=== PATIENT | female | born 1995 | race Hispanic/Latino ===

== ENCOUNTER 2018-12-23 23:59 | Emergency (ER) | payer SELFPAY ==
[~2018-12-23] VITALS: Ht 157.5 cm; Wt 86.2 kg
--- OUTSIDE RECORDS SUMMARY | 2018-12-24 00:04 | XMS REPORT ---
Author Author Admin, Warren Organization [facility] Address Unknown Phone Unavailable Allergies, Adverse Reactions, Alerts Allergy Name Reaction Description Start Date Severity Status Provider No Known Allergies Flip Barrett DDS Conditions or Problems Problem Name Problem Code Onset Date Status Entry Date Provider Comment Standard Description Annotate No Known Problems Flip Barrett DDS Medication List Medication Instructions Start Date Stop Date Generic Name NDC Status Provider Patient Instruction AMOXICILLIN 500 MG ORAL CAPSULE 1 by mouth 3 times a day AMOXICILLIN 48924980983 Active Flip Barrett DDS Active TYLENOL WITH CODEINE #3 300-30 MG ORAL TABLET 1 by mouth every 4-6 hours as needed ACETAMINOPHEN-CODEINE 91288531426 Active Flip Barrett DDS Active Vital Signs Date Name Value Unit Range Description blood pressure, diastolic 82 mm[Hg] BP kohler blood pressure, systolic 114 mm[Hg] BP sys pulse rate E&M 59 /min Heart rate
--- OUTSIDE RECORDS SUMMARY | 2018-12-24 00:04 | XMS REPORT | Clinical Summary ---
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 Active Problems Problem Noted Date Suicide attempt 03/22/2018 Encounters Care Team Description Date Type Specialty Jesusita Gandara MD Dodson, MD Christine Carranza, MD Diana Ramos, Bernardo Carpio MD Suicide attempt (HCC) (Primary Dx); Unresponsive; Intentional diphenhydramine overdose, initial encounter (HCC); Acute respiratory failure, unspecified whether with hypoxia or hypercapnia ([facility]) 03/22/2018 Emergency General Internal Medicine - 03/23/2018 03/22/2018 Orders Only General Internal Medicine after 12/23/2017 Social History Date Tobacco Use Types Packs/Day Years Used Never Smoker Smokeless Tobacco: Never Used Alcohol Use Drinks/Week oz/Week Comments No Sex Assigned at Date Recorded Not on file Industry Job Start Date Occupation Not on file Not on file Not on file Travel End Travel History Travel Start No recent travel history available. Last Filed Vital Signs Time Taken Vital Sign Reading 03/23/2018 10:00 AM CDT Blood Pressure 120/68 03/23/2018 11:06 AM CDT Pulse 55 03/23/2018 10:00 AM CDT Temperature 37 C (98.6 F) 03/23/2018 11:06 AM CDT Respiratory Rate 16 03/23/2018 11:06 AM CDT Oxygen Saturation 99% 03/23/2018 11:06 AM CDT Inhaled Oxygen 21% Concentration 03/22/2018 5:41 AM CDT Weight 87.4 kg (192 lb 11.2 oz) 03/22/2018 1:50 AM CDT Height 170.2 cm (5' 7") 03/22/2018 5:41 AM CDT Body Mass Index 30.18 Plan of Treatment Not on file Procedures Comments Procedure Name Priority Date/Time Associated Diagnosis RHYTHM STRIP - SCAN 03/24/2018 3:11 PM CDT XR CHEST 1 VIEW Routine 03/23/2018 PORTABLE/BEDSIDE 3:50 AM CDT CBC (HEMOGRAM ONLY) Routine 03/23/2018 3:28 AM CDT BASIC METABOLIC PANEL (7) Routine 03/23/2018 3:28 AM CDT COMPREHENSIVE METABOLIC Routine 03/22/2018 PANEL 7:53 PM CDT COMPREHENSIVE METABOLIC Routine 03/22/2018 PANEL 5:46 PM CDT POCT-GLUCOSE METER Routine 03/22/2018 12:24 PM CDT COMPREHENSIVE METABOLIC Routine 03/22/2018 PANEL 11:52 AM CDT ECG 12-LEAD Routine 03/22/2018 9:12 AM CDT Procedure Note - Interface, External Ris In - 03/22/2018 9:15 AM CDT Ventricula r Rate 85 BPM Atrial Rate 85 BPM P-R Interval 152 ms QRS Duration 82 ms Q-T Interval 394 ms QTC Calculatio n(Bazett) 468 ms P Boyd 62 degrees R Boyd 57 degrees T Boyd 40 degrees Normal sinus rhythm Normal ECG When compared with ECG of 09:11, PREVIOUS ECG IS PRESENT ECG 12-LEAD Routine 03/22/2018 9:11 AM CDT Procedure Note - Interface, External Ris In - 03/22/2018 9:15 AM CDT Ventricula r Rate 81 BPM Atrial Rate 81 BPM P-R Interval 154 ms QRS Duration 82 ms Q-T Interval 390 ms QTC Calculatio n(Bazett) 453 ms P Boyd 155 degrees R Boyd 132 degrees T Boyd 80 degrees Suspect arm lead reversal, interpreta tion assumes no reversal Unusual P axis, possible ectopic atrial rhythm with undetermin ed rhythm irregulari ty Right axis deviation Abnormal ECG When compared with ECG of 8 09:11, PREVIOUS ECG IS PRESENT ECG 12-LEAD Routine 03/22/2018 9:11 AM CDT Procedure Note - Interface, External Ris In - 03/22/2018 9:14 AM CDT Ventricula r Rate 85 BPM Atrial Rate 85 BPM P-R Interval 150 ms QRS Duration 84 ms Q-T Interval 386 ms QTC Calculatio n(Bazett) 459 ms P Boyd 145 degrees R Boyd 138 degrees T Boyd 126 degrees Suspect arm lead reversal, interpreta tion assumes no reversal Unusual P axis, possible ectopic atrial rhythm Right axis deviation Abnormal ECG When compared with ECG of 8 09:10, PREVIOUS ECG IS PRESENT ECG 12-LEAD Routine 03/22/2018 9:10 AM CDT Procedure Note - Interface, External Ris In - 03/22/2018 9:13 AM CDT Ventricula r Rate 84 BPM Atrial Rate 84 BPM P-R Interval 150 ms QRS Duration 82 ms Q-T Interval 392 ms QTC Calculatio n(Bazett) 463 ms P Boyd 144 degrees R Boyd 132 degrees T Boyd 74 degrees Suspect arm lead reversal, interpreta tion assumes no reversal Unusual P axis, possible ectopic atrial rhythm Right axis deviation Cannot rule out Inferior infarct , age undetermin ed Abnormal ECG When compared with ECG of 8 09:10, PREVIOUS ECG IS PRESENT ECG 12-LEAD Routine 03/22/2018 9:10 AM CDT Procedure Note - Interface, External Ris In 03/22/2018 9:13 AM CDT Ventricula r Rate 84 BPM Atrial Rate 84 BPM P-R Interval 150 ms QRS Duration 86 ms Q-T Interval 394 ms QTC Calculatio n(Bazett) 465 ms P Boyd 146 degrees R Boyd 133 degrees T Boyd 103 degrees Suspect arm lead reversal, interpreta tion assumes no reversal Unusual P axis, possible ectopic atrial rhythm Right axis deviation Prolonged QT Abnormal ECG When compared with ECG of 8 07:10, PREVIOUS ECG IS PRESENT PHOSPHORUS Add-On 03/22/2018 8:21 AM CDT MAGNESIUM Add-On 03/22/2018 8:21 AM CDT COMPREHENSIVE METABOLIC Routine 03/22/2018 PANEL 8:21 AM CDT ECG 12-LEAD Routine 03/22/2018 7:10 AM CDT Procedure Note - Interface, External Ris In - 03/22/2018 7:13 AM CDT Ventricula r Rate 84 BPM Atrial Rate 84 BPM P-R Interval 158 ms QRS Duration 80 ms Q-T Interval 382 ms QTC Calculatio n(Bazett) 451 ms P Boyd 54 degrees R Boyd 53 degrees T Boyd 38 degrees Normal sinus rhythm Normal ECG When compared with ECG of 8 04:03, PREVIOUS ECG IS PRESENT POCT-GLUCOSE METER Routine 03/22/2018 6:37 AM CDT SPUTUM CULTURE + GRAM Routine 03/22/2018 STAIN 5:44 AM CDT CRITICAL CARE Routine 03/22/2018 5:[address] SPINE CERVICAL WITHOUT STAT 03/22/2018 IV CONTRAST 4:[address] BRAIN WITHOUT IV STAT 03/22/2018 CONTRAST 4:57 AM CDT BLOOD GAS, ARTERIAL Routine 03/22/2018 4:12 AM CDT XR CHEST 1 VIEW STAT 03/22/2018 PORTABLE/BEDSIDE 4:10 AM CDT SCREEN, URINE ANTONIETTA 03/22/2018 4:06 AM CDT RAPID DRUG SCREEN, URINE STAT 03/22/2018 4:06 AM CDT ECG 12-LEAD Routine 03/22/2018 4:03 AM CDT Procedure Note - Interface, External Ris In - 03/22/2018 4:04 AM CDT Ventricula r Rate 104 BPM Atrial Rate 104 BPM P-R Interval 154 ms QRS Duration 84 ms Q-T Interval 370 ms QTC Calculatio n(Bazett) 486 ms P Boyd 63 degrees R Boyd 62 degrees T Boyd 41 degrees Sinus tachycardi a Otherwise normal ECG No previous ECGs available CBC W/PLT COUNT & AUTO STAT 03/22/2018 DIFFERENTIAL 3:57 AM CDT HCG, SERUM, QUALITATIVE STAT 03/22/2018 3:57 AM CDT ACETAMINOPHEN LEVEL STAT 03/22/2018 3:57 AM CDT SALICYLATE LEVEL STAT 03/22/2018 3:57 AM CDT HEPATIC FUNCTION PANEL STAT 03/22/2018 3:57 AM CDT ETHANOL STAT 03/22/2018 3:57 AM CDT TROPONIN I STAT 03/22/2018 3:57 AM CDT PHOSPHORUS STAT 03/22/2018 3:57 AM CDT MAGNESIUM STAT 03/22/2018 3:57 AM CDT BASIC METABOLIC PANEL (7) STAT 03/22/2018 3:57 AM CDT CBC W/PLT COUNT & AUTO STAT 03/22/2018 DIFFERENTIAL 3:57 AM CDT URINALYSIS - [facility] ED Routine 03/22/2018 3:20 AM CDT URINE DRUG SCREEN (KIT Routine 03/22/2018 TEST) - [facility] ED 3:18 AM CDT COMPLETE METABOLIC PANEL Routine 03/22/2018 - [facility] ED 3:17 AM CDT CBC WITH INSTRUMENT DIFF Routine 03/22/2018 - [facility] ED 3:17 AM CDT INSERT EMERGENCY Routine 03/22/2018 END[address]WAY 3:08 AM CDT VENT MANAGEMENT, Routine 03/22/2018 INPATIENT, INITIAL DAY 3:08 AM CDT XR CHEST 1 VIEW STAT 03/22/2018 PORTABLE/BEDSIDE 2:40 AM CDT after 12/23/2017 Results * RHYTHM STRIP - SCAN (03/24/2018 3:11 PM CDT) Narrative Performed At * XR chest 1 view portable / bedside (03/23/2018 3:50 AM CDT) Only the most recent of 3 results within the time period is included. Narrative Performed At FINAL REPORT [facility] RAD, CHEST, 1 VIEW, NON DEPT INDICATION: Acute respiratory failure COMPARISON: Prior day's exam FINDINGS: Portable frontal view of the chest. IMPRESSION: Support Lines: Endotracheal and enteric tubes have been removed. Lungs and pleura: Lungs are clear. There is no effusion. No pneumothorax. Heart and mediastinum: Stable contours. Additional findings: None. Signed: JR Ritter Robert MD Report Verified Date/Time:03/23/2018 04:31:37 Reading Location: [address] Reading Room Procedure Note Interface, External Ris In - 03/23/2018 4:33 AM CDT FINAL REPORT RAD, CHEST, 1 VIEW, NON DEPT INDICATION: Acute respiratory failure COMPARISON: Prior day's exam FINDINGS: Portable frontal view of the chest. IMPRESSION: Support Lines: Endotracheal and enteric tubes have been removed. Lungs and pleura: Lungs are clear. There is no effusion. No pneumothorax. Heart and mediastinum: Stable contours. Additional findings: None. Signed: JR Ritter Robert MD Report Verified Date/Time: 03/23/2018 04:31:37 Reading Location: [address] Reading Room Performing Organization Address City/State/Zipcode Phone Number [facility] * CBC (Hemogram only) (03/23/2018 3:28 AM CDT) WBC 9.7 4.0 - 10.0 K/L [facility] RBC 4.08 4.00 - 5.00 M/L [facility] Hemoglobin 10.6 (L) 12.0 - 15.0 GM/DL [facility] Hematocrit 32.0 (L) 36.0 - 45.0 % [facility] MCV 78.5 (L) 82.0 - 99.[address] [facility] MCH 25.9 (L) 27.0 - 33.[address] [facility] MCHC 33.0 32.0 - 36.0 GM/DL [facility] RDW 15.0 12.0 - 15.0 % [facility] Platelets 325 150 - 430 K/CU MM [facility] MPV 7.4 6.5 - 10.[address] [facility] nRBC 0 0 - 0 /100 WBC [facility] Specimen Blood - Arm, Left Performing Organization Address [facility] Phone Number [facility] [address] [place] [address] * Basic Metabolic Panel (03/23/2018 3:28 AM CDT) Only the most recent of 2 results within the time period is included. Sodium 140 135 - 148 meq/L [facility] Potassium 3.3 (L) 3.5 - 5.5 meq/L [facility] Chloride 109 (H) 98 - 106 meq/L [facility] CO2 25 20 - 31 meq/L [facility] BUN 6 (L) 10 - 26 mg/dL [facility] Creatinine 0.66 0.50 - 1.20 mg/dL [facility] Glucose 91 70 - 110 mg/dL [facility] Calcium 8.2 (L) 8.5 - 10.5 mg/dL [facility] EGFR Comment: INSUFFICIENT CLINICAL mL/min/1.[address] [facility] DATA TO CALCULATE ESTIMATED GFR. Specimen Blood - Arm, Left Performing Organization Address [facility] Phone Number [facility] [address] [place] [address] * Comprehensive metabolic panel (03/22/2018 7:53 PM CDT) Only the most recent of 4 results within the time period is included. Protein, Total 6.8 6.0 - 8.5 gm/dL [facility] Albumin 3.7 3.5 - 5.0 g/dL [facility] Alkaline Phosphatase 55 30 - 115 U/L [facility] Total Bilirubin 0.6 0.1 - 1.3 mg/dL [facility] Sodium 140 135 - 148 meq/L [facility] Potassium 3.2 (L) 3.5 - 5.5 meq/L [facility] Chloride 108 (H) 98 - 106 meq/L [facility] CO2 24 20 - 31 meq/L [facility] BUN 5 (L) 10 - 26 mg/dL [facility] Creatinine 0.71 0.50 - 1.20 mg/dL [facility] Glucose 114 (H) 70 - 110 mg/dL [facility] Calcium 8.7 8.5 - 10.5 mg/dL [facility] AST 23 5 - 40 U/L [facility] ALT 16 6 - 50 U/L [facility] EGFR Comment: INSUFFICIENT CLINICAL mL/min/1.[address] [facility] DATA TO CALCULATE ESTIMATED GFR. Specimen Blood - Arm, Left Performing Organization Address [facility] Phone Number [facility] [address] [place] [address] * POC-Glucose meter (03/22/2018 12:24 PM CDT) Only the most recent of 2 results within the time period is included. POC-Glucose Meter 89Comment: TESTED AT [facility] 70 - 110 mg/dL [facility] [address] [facility] [id number] Specimen Blood Performing Organization Address [facility] Phone Number [facility] [address] [place] [address] [phone] [place] [address] * Phosphorus (03/22/2018 8:21 AM CDT) Only the most recent of 2 results within the time period is included. Phosphorus 3.3 2.5 - 4.5 mg/dL [facility] Specimen Blood Performing Organization Address [facility] Phone Number [facility] [address] [place] [address] * Magnesium (03/22/2018 8:21 AM CDT) Only the most recent of 2 results within the time period is included. Magnesium 1.9 1.5 - 3.0 mg/dL [facility] Specimen Blood Performing Organization Address [facility] Phone Number [facility] [address] [place] [address] * Sputum Culture + Gram Stain (03/22/2018 5:44 AM CDT) Result 1+ Normal respiratory hali [facility] present Gram Stain Result 2+ WBCs [facility] Gram Stain Result 0-[address] [facility] Gram Stain Result No organisms seen [facility] Specimen Sputum - Endotracheal Performing Organization Address City/State/Zipcode Phone Number [facility] [address] [place] [address] * CRITICAL CARE (03/22/2018 5:15 AM CDT) Narrative Performed At Ewa Oconnell MD 03/22/20185:15 AM Critical Care Performed by: EWA OCONNELL Authorized by: EWA OCONNELL Total critical care time: 34 minutes Critical care was time spent personally by me on the following activities: discussions with consultants, discussions with primary provider, examination of patient, ordering and review of laboratory studies, ordering and review of radiographic studies and re-evaluation of patient's condition. * CT spine cervical without IV contrast (03/22/2018 4:57 AM CDT) Narrative Performed At FINAL REPORT [facility] EXAM: CERVICAL SPINE CT WITHOUT CONTRAST CLINICAL INDICATION:INGESTION possibly found down COMPARISON: None TECHNIQUE:Axially oriented 2.5 mm thick images were obtained through the entire cervical spine, without contrast.Sagittal and coronal reformations are also provided in osseous and soft tissue algorithms. DOSE REDUCTION: Dose modulation, iterative reconstruction, and/or weight-based adjustment of the mA/kV was utilized to reduce the radiation dose to as low as reasonably achievable. FINDINGS: There is no fracture or traumatic malalignment. The occipital condyles are intact and normally seated. The atlantodental interval is preserved. The canal and foramina are patent. Prevertebral soft tissue structures are unremarkable. Visible portions of the aerodigestive tract are clear. The thyroid gland is unremarkable. There is no apical pneumothorax. IMPRESSION: No acute abnormality in the cervical spine. Signed: JR Ritter Robert MD Report Verified Date/Time:03/22/2018 04:43:18 Reading Location: [address] Reading Room Procedure Note Interface, External Ris In - 03/22/2018 4:58 AM CDT FINAL REPORT EXAM: CERVICAL SPINE CT WITHOUT CONTRAST CLINICAL INDICATION: INGESTION possibly found down COMPARISON: None TECHNIQUE: Axially oriented 2.5 mm thick images were obtained through the entire cervical spine, without contrast. Sagittal and coronal reformations are also provided in osseous and soft tissue algorithms. DOSE REDUCTION: Dose modulation, iterative reconstruction, and/or weight-based adjustment of the mA/kV was utilized to reduce the radiation dose to as low as reasonably achievable. FINDINGS: There is no fracture or traumatic malalignment. The occipital condyles are intact and normally seated. The atlantodental interval is preserved. The canal and foramina are patent. Prevertebral soft tissue structures are unremarkable. Visible portions of the aerodigestive tract are clear. The thyroid gland is unremarkable. There is no apical pneumothorax. IMPRESSION: No acute abnormality in the cervical spine. Signed: JR Ritter Robert MD Report Verified Date/Time: 03/22/2018 04:43:18 Reading Location: [address] Reading Room Performing Organization Address City/State/Zipcode Phone Number [facility] * CT brain without IV contrast (03/22/2018 4:57 AM CDT) Narrative Performed At FINAL REPORT [facility] EXAM: CT head without contrast. CLINICAL HISTORY: Possible ingestion. Found down. COMPARISON: None. TECHNIQUE: CT images of the head were obtained without intravenous contrast.This exam was performed according to our departmental dose optimization program which includes automated exposure control, adjustment of the mA and/or kV according to patient's size and/or use of iterative reconstructive technique. FINDINGS: There is no acute intracranial hemorrhage, extra-axial fluid collection, mass effect, herniation or hydrocephalus. The basal cisterns are patent. There is no demarcated acute territorial infarct. The visualized orbits are normal. The visualized paranasal sinuses and tympanomastoid cavities are clear. The skull base and calvarium are intact. IMPRESSION: No CT evidence of an acute intracranial process. Signed: Melissa Porter MD Report Verified Date/Time:03/22/2018 04:51:18 Reading Location: [facility] [id number] Reading Room Procedure Note Interface, External Ris In - 03/22/2018 4:58 AM CDT FINAL REPORT EXAM: CT head without contrast. CLINICAL HISTORY: Possible ingestion. Found down. COMPARISON: None. TECHNIQUE: CT images of the head were obtained without intravenous contrast. This exam was performed according to our departmental dose optimization program which includes automated exposure control, adjustment of the mA and/or kV according to patient's size and/or use of iterative reconstructive technique. FINDINGS: There is no acute intracranial hemorrhage, extra-axial fluid collection, mass effect, herniation or hydrocephalus. The basal cisterns are patent. There is no demarcated acute territorial infarct. The visualized orbits are normal. The visualized paranasal sinuses and tympanomastoid cavities are clear. The skull base and calvarium are intact. IMPRESSION: No CT evidence of an acute intracranial process. Signed: Melissa Porter MD Report Verified Date/Time: 03/22/2018 04:51:18 Reading Location: [address] Transitional Reading Room Performing Organization Address City/[facility] Phone Number [facility] * Blood gas, arterial (03/22/2018 4:12 AM CDT) pH, Arterial 7.36 7.35 - 7.45 [facility] pCO2, Arterial 35 35 - [address] [facility] pO2, Arterial 491 (H) 80 - [address] [facility] O2 Sat, Arterial 99.9 (H) 96.0 - 97.0 % [facility] HCO3, Arterial 19 (L) 21 - 29 mmol/L [facility] Base Excess, Arterial -5.5 (L) -2.0 - 3.0 mmol/L [facility] Patient Temperature 37.[address] [facility] FIO2 100.0 % [facility] Specimen Blood, Arterial - Arm, Right Performing Organization Address [facility] Phone Number [facility] [address] [place], [place] [address] * Rapid drug screen, urine (03/22/2018 4:06 AM CDT) Barbiturate Screen Negative Negative [facility] Benzodiazepine Screen Positive (A) Negative [facility] Cocaine (Metab.) Screen Negative Negative [facility] Methadone Screen Negative Negative [facility] Opiate Screen Negative Negative [facility] Cannabinoid Screen Negative Negative [facility] Amph/Methamph Screen Negative Negative [facility] Phencyclidine Screen Negative Negative [facility] Specimen Urine - Urine, Garcia Narrative Performed At [facility] Cocaine 300 ng/mL Sttptjfalwt84 ng/mL Ypeyivhxpvzoxs330 ng/mL Barbiturate 200 ng/mL Ufbyasnuainyv78 ng/mL Pedfmg959 ng/mL Methadone 300 ng/mL Amphetamine/ 1000 ng/mL Methamphetamine This assay provides an unconfirmed qualitative test result for the clinical management of patients in emergency situations. Chain of custody not maintained. Some btnh-wog-hugyiel medications, as well as adulterants, may cause inaccurate results. Clinical correlation should be applied. A more comprehensive drug screen or confirmation of a detected drug may be performed upon request. Performing Organization Address [facility] Phone Number [facility] [address] [place] [address] * Screen, urine (03/22/2018 4:06 AM CDT) Preg Test, Ur Negative [facility] Specimen Urine Performing Organization Address [facility] Phone Number [facility] [address] [place] [address] * CBC with platelet count + automated diff (03/22/2018 3:57 AM CDT) WBC 11.0 (H) 4.0 - 10.0 K/L [facility] RBC 4.70 4.00 - 5.00 M/L [facility] Hemoglobin 12.1 12.0 - 15.0 GM/DL [facility] Hematocrit 36.8 36.0 - 45.0 % [facility] MCV 78.2 (L) 82.0 - 99.0 [facility] MCH 25.8 (L) 27.0 - 33.0 pg [facility] MCHC 33.0 32.0 - 36.0 GM/DL [facility] RDW 14.4 12.0 - 15.0 % [facility] Platelets 353 150 - 430 K/CU MM [facility] MPV 7.4 6.5 - 10.5 fL [facility] nRBC 0 0 - 0 /[address] [facility] % Neutros 70 % [facility] % Lymphs 22 % [facility] % Monos 8 % [facility] % Eos 0 % [facility] % Baso 0 % [facility] # Neutros 7.70 1.80 - 8.00 K/L [facility] # Lymphs 2.40 1.48 - 4.50 K/L [facility] # Monos 0.90 0.00 - 1.30 K/L [facility] # Eos 0.00 0.00 - 0.50 K/L [facility] # Baso 0.00 0.00 - 0.20 K/L [facility] Specimen Blood - Line, Venous Performing Organization Address [facility] Number [facility] [address] [place] [address] * Troponin I (not available at [facility] and [place]) (03/22/2018 3:57 AM CDT) Troponin I <0.01 0.00 - 0.15 ng/mL [facility] Specimen Blood - Line, Venous Narrative Performed At Troponin I (TnI) levels must be interpreted in the context of the presenting [facility] symptoms and the clinical findings. Elevated TnI levels indicate myocardial damage, but are not specific for ischemic heart disease. Elevated TnI levels are seen in patients with other cardiac conditions (including myocarditis and congestive heart failure), and slight TnI elevations occur in patients with other conditions, including sepsis, renal failure, acidosis, acute neurological disease, and persistent tachyarrhythmia. Performing Organization Address [facility] Number [facility] [address] [place] [address] * hCG, serum, qualitative ([facility], [facility], [facility], [facility] only) (03/22/2018 3:57 AM CDT) Preg Test, Serum Negative [facility] Specimen Blood - Line, Venous Performing Organization Address [facility] [place] [facility] [address] [place] [address] * Ethanol (03/22/2018 3:57 AM CDT) Ethanol Lvl <10 <=10 mg/dL [facility] Specimen Blood - Line, Venous Performing Organization Address [facility] Number [facility] [address] [place] [address] * Acetaminophen level (03/22/2018 3:57 AM CDT) Acetaminophen Level <6.0 (L) 10.0 - 30.0 ug/mL [facility] Specimen Blood - Line, Venous Performing Organization Address [facility] [place] [facility] [address] [place] [address] * Salicylate level (03/22/2018 3:57 AM CDT) Salicylate Lvl <5.0 (L) 20.0 - 30.0 mg/dL [facility] Specimen Blood - Line, Venous Performing Organization Address [facility] [place] Number [facility] [address] [place] [address] * Liver Panel (03/22/2018 3:57 AM CDT) Protein, Total 7.7Comment: Specimen slightly 6.0 - 8.5 gm/dL [facility] hemolyzed Albumin 4.1Comment: Specimen slightly 3.5 - 5.0 g/dL [facility] hemolyzed Total Bilirubin 0.5Comment: Specimen slightly 0.1 - 1.3 mg/dL [facility] hemolyzed Bilirubin, Direct 0.2Comment: Specimen slightly 0.0 - 0.5 mg/dL [facility] hemolyzed Alkaline Phosphatase 58 30 - 115 U/L [facility] AST 28Comment: Specimen slightly 5 - 40 U/L [facility] hemolyzed ALT 18Comment: Specimen slightly 6 - 50 U/L [facility] hemolyzed Specimen Blood - Line, Venous Performing Organization Address [facility] [place] Number [facility] [address] [place] [address] * URINALYSIS - [facility] (03/22/2018 3:20 AM CDT) Specimen Urine Narrative Performed At * URINE DRUG SCREEN (KIT TEST) - [facility] (03/22/2018 3:18 AM CDT) Specimen Urine Narrative Performed At * CBC WITH INSTRUMENT DIFF - [facility] (03/22/2018 3:17 AM CDT) Specimen Blood Narrative Performed At * COMPLETE METABOLIC PANEL - [facility] (03/22/2018 3:17 AM CDT) Specimen Blood Narrative Performed At * ED INTUBATION (03/22/2018 3:08 AM CDT) Narrative Performed At Jesusita Gandara MD 03/22/20183:08 AM Intubation Date/Time: 03/22/2018 2:53 AM Performed by: JESUSITA GANDARA Authorized by: JESUSITA GANDARA Consent: The procedure was performed in an emergent situation. Verbal consent not obtained. Written consent not obtained. Indications: airway protection Intubation method: direct Patient status: unconscious Preoxygenation: nonrebreather mask Sedatives: etomidate Paralytic: rocuronium Laryngoscope size: Mac 3 Tube size: 7.0 mm Tube type: cuffed Number of attempts: 1 Cricoid pressure: yes Cords visualized: yes Post-procedure assessment: chest rise and CO2 detector Breath sounds: equal Cuff inflated: yes ETT to lip: 23 cm Tube secured with: ETT gant Chest x-ray interpreted by me. Chest x-ray findings: endotracheal tube too low Tube repositioned: tube repositioned successfully Patient tolerance: Patient tolerated the procedure well with no immediate complications after 12/23/2017 Insurance Payer Benefit Subscriber ID Type Phone Address Plan / Group [employer] xxxxxxxxxx [employer] EXCHANGE Advance Directives For more information, please contact: [facility] [address] [place] [address] Date Inactivated Comments Code Status Date Activated 03/23/2018 7:04 PM Full Code 03/22/2018 7:11 AM This code status was determined by: Patient
--- OUTSIDE RECORDS SUMMARY | 2018-12-24 00:05 | XMS REPORT ---
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 Allergies, Adverse Reactions, Alerts This patient has no known allergies or adverse reactions. Medications This patient has no known medications. Results Test Description Test Time Test Comments Text Results Atomic Results Result Comments SPUTUM CULTURE + GRAM STAIN 2018-03-24 12:10:00 CULTURE (BEAKER) (test nuwr=3283) 1+ Normal respiratory hali present GRAM STAIN RESULT (BEAKER) (test bhyu=9949) 2+ WBCs GRAM STAIN RESULT (BEAKER) (test gbgh=58428) 0-5 epithelial cells GRAM STAIN RESULT (BEAKER) (test jgwo=08594) No organisms seen RAD, CHEST, 1 VIEW, NON [id number] 04:31:00Reason for exam:->Acute respiratory failureShould this be performed at the bedside?->YesIs the patient ?->NoFINAL REPORT RAD, CHEST, 1 VIEW, NON DEPT INDICATION: Acute respiratory failure COMPARISON: Prior day's exam FINDINGS: Portable frontal view of the chest. IMPRESSION: Support Lines: Endotracheal and enteric tubes have been removed. Lungs and pleura: Lungs are clear. There is no effusion. No pneumothorax.Heart and mediastinum: Stable contours. Additional findings: None. Signed: JR Ritter Robert MDReport Verified Date/Time: 03/23/2018 04:31:37 Reading Location: [address] Reading Room C METABOLIC [id number] 03:53:00* Test Item Value Reference Range Comments SODIUM (BEAKER) (test jbbr=315) 140 meq/L 135-148 POTASSIUM (BEAKER) (test jxbt=676) 3.3 meq/L 3.5-5.5 CHLORIDE (BEAKER) (test jpww=972) 109 meq/L 98-106 CO2 (BEAKER) (test esae=165) 25 meq/L 20-31 BLOOD UREA NITROGEN (BEAKER) (test kerc=993) 6 mg/dL 10-26 CREATININE (BEAKER) (test bzuw=675) 0.66 mg/dL 0.50-1.20 GLUCOSE RANDOM (BEAKER) (test cgoi=970) 91 mg/dL 70-110 CALCIUM (BEAKER) (test xsgw=417) 8.2 mg/dL 8.5-10.5 EGFR (BEAKER) (test irfn=7400) mL/min/1.73 sq m INSUFFICIENT CLINICAL DATA TO CALCULATE ESTIMATED GFR. CBC (HEMOGRAM ONLY)2018-03-23 03:33:00* Test Item Value Reference Range Comments WHITE BLOOD CELL COUNT (BEAKER) (test hoke=589) 9.7 K/ L 4.0-10.0 RED BLOOD CELL COUNT (BEAKER) (test sqqz=845) 4.08 M/ L 4.00-5.00 HEMOGLOBIN (BEAKER) (test lwae=955) 10.6 GM/DL 12.0-15.0 HEMATOCRIT (BEAKER) (test sdub=872) 32.0 % 36.0-45.0 MEAN CORPUSCULAR VOLUME (BEAKER) (test ymaf=271) 78.5 fL 82.0-99.0 MEAN CORPUSCULAR HEMOGLOBIN (BEAKER) (test zsqa=230) 25.9 pg 27.0-33.0 MEAN CORPUSCULAR HEMOGLOBIN CONC (BEAKER) (test pryk=955) 33.0 GM/DL 32.0-36.0 RED CELL DISTRIBUTION WIDTH (BEAKER) (test ucir=320) 15.0 % 12.0-15.0 PLATELET COUNT (BEAKER) (test rhkf=141) 325 K/CU MM 150-430 MEAN PLATELET VOLUME (BEAKER) (test cfph=737) 7.4 fL 6.5-10.5 NUCLEATED RED BLOOD CELLS (BEAKER) (test tiev=294) 0 /100 WBC 0-0 COMPREHENSIVE METABOLIC [id number] 20:43:00* Test Item Value Reference Range Comments TOTAL PROTEIN (BEAKER) (test rqku=890) 6.8 gm/dL 6.0-8.5 ALBUMIN (BEAKER) (test znot=0902) 3.7 g/dL 3.5-5.0 ALKALINE PHOSPHATASE (BEAKER) (test phqt=869) 55 U/L 30-115 BILIRUBIN TOTAL (BEAKER) (test dflr=400) 0.6 mg/dL 0.1-1.3 SODIUM (BEAKER) (test ztqf=888) 140 meq/L 135-148 POTASSIUM (BEAKER) (test xzai=055) 3.2 meq/L 3.5-5.5 CHLORIDE (BEAKER) (test hdot=997) 108 meq/L 98-106 CO2 (BEAKER) (test psgc=288) 24 meq/L 20-31 BLOOD UREA NITROGEN (BEAKER) (test gvla=412) 5 mg/dL 10-26 CREATININE (BEAKER) (test kkte=897) 0.71 mg/dL 0.50-1.20 GLUCOSE RANDOM (BEAKER) (test xqaf=896) 114 mg/dL 70-110 CALCIUM (BEAKER) (test upru=909) 8.7 mg/dL 8.5-10.5 AST (SGOT) (BEAKER) (test ewiq=751) 23 U/L 5-40 ALT (SGPT) (BEAKER) (test vgpp=525) 16 U/L 6-50 EGFR (BEAKER) (test mnjy=1085) mL/min/1.73 sq m INSUFFICIENT CLINICAL DATA TO CALCULATE ESTIMATED GFR. COMPREHENSIVE METABOLIC [id number] 18:40:00* Test Item Value Reference Range Comments TOTAL PROTEIN (BEAKER) (test ubkd=670) 7.2 gm/dL 6.0-8.5 ALBUMIN (BEAKER) (test tqpo=0180) 3.9 g/dL 3.5-5.0 ALKALINE PHOSPHATASE (BEAKER) (test gjpa=131) 56 U/L 30-115 BILIRUBIN TOTAL (BEAKER) (test wwwd=983) 0.6 mg/dL 0.1-1.3 SODIUM (BEAKER) (test famp=516) 140 meq/L 135-148 POTASSIUM (BEAKER) (test heic=129) 3.3 meq/L 3.5-5.5 CHLORIDE (BEAKER) (test gfbf=099) 108 meq/L 98-106 CO2 (BEAKER) (test bsvg=797) 23 meq/L 20-31 BLOOD UREA NITROGEN (BEAKER) (test cwyd=700) 5 mg/dL 10-26 CREATININE (BEAKER) (test dvia=565) 0.75 mg/dL 0.50-1.20 GLUCOSE RANDOM (BEAKER) (test ysfm=553) 101 mg/dL 70-110 CALCIUM (BEAKER) (test wkvu=621) 8.7 mg/dL 8.5-10.5 AST (SGOT) (BEAKER) (test sbvb=211) 22 U/L 5-40 ALT (SGPT) (BEAKER) (test sjaz=399) 16 U/L 6-50 EGFR (BEAKER) (test jydd=5809) mL/min/1.73 sq m INSUFFICIENT CLINICAL DATA TO CALCULATE ESTIMATED GFR. COMPREHENSIVE METABOLIC [id number] 12:31:00* Test Item Value Reference Range Comments TOTAL PROTEIN (BEAKER) (test oqla=568) 7.2 gm/dL 6.0-8.5 Specimen slightly hemolyzed ALBUMIN (BEAKER) (test jjlo=2822) 3.9 g/dL 3.5-5.0 Specimen slightly hemolyzed ALKALINE PHOSPHATASE (BEAKER) (test ixit=427) 56 U/L 30-115 BILIRUBIN TOTAL (BEAKER) (test zprr=377) 0.4 mg/dL 0.1-1.3 Specimen slightly hemolyzed SODIUM (BEAKER) (test fkdq=697) 140 meq/L 135-148 POTASSIUM (BEAKER) (test kzll=170) 3.5 meq/L 3.5-5.5 Specimen slightly hemolyzed CHLORIDE (BEAKER) (test lpup=064) 109 meq/L 98-106 CO2 (BEAKER) (test kkbo=463) 22 meq/L 20-31 BLOOD UREA NITROGEN (BEAKER) (test yizf=810) 6 mg/dL 10-26 CREATININE (BEAKER) (test ukvn=955) 0.71 mg/dL 0.50-1.20 Specimen slightly hemolyzed GLUCOSE RANDOM (BEAKER) (test ranf=353) 105 mg/dL 70-110 CALCIUM (BEAKER) (test xgdd=009) 9.1 mg/dL 8.5-10.5 AST (SGOT) (BEAKER) (test fpcz=718) 22 U/L 5-40 Specimen slightly hemolyzed ALT (SGPT) (BEAKER) (test wish=291) 16 U/L 6-50 Specimen slightly hemolyzed EGFR (BEAKER) (test srfn=6991) mL/min/1.73 sq m INSUFFICIENT CLINICAL DATA TO CALCULATE ESTIMATED GFR. POCT-GLUCOSE [id number] 12:29:00* Test Item Value Reference Range Comments POC-GLUCOSE METER (BEAKER) (test tpcw=4959) 89 mg/dL 70-110 TESTED AT [facility] [address] [facility] [address] SCREEN, [id number] 10:41:00* Test Item Value Reference Range Comments TEST URINE (BEAKER) (test iiod=380) Negative [id number] 09:15:00* Test Item Value Reference Range Comments PHOSPHORUS (BEAKER) (test tgcy=177) 3.3 mg/dL 2.5-4.5 [id number] 09:15:00* Test Item Value Reference Range Comments MAGNESIUM (BEAKER) (test otsc=094) 1.9 mg/dL 1.5-3.0 COMPREHENSIVE METABOLIC [id number] 09:00:00* Test Item Value Reference Range Comments TOTAL PROTEIN (BEAKER) (test ppuc=417) 7.1 gm/dL 6.0-8.5 ALBUMIN (BEAKER) (test ncjs=3745) 3.9 g/dL 3.5-5.0 ALKALINE PHOSPHATASE (BEAKER) (test mjtt=897) 57 U/L 30-115 BILIRUBIN TOTAL (BEAKER) (test mipv=236) 0.5 mg/dL 0.1-1.3 SODIUM (BEAKER) (test kwbr=351) 141 meq/L 135-148 POTASSIUM (BEAKER) (test wvwf=631) 3.7 meq/L 3.5-5.5 CHLORIDE (BEAKER) (test wamp=432) 109 meq/L 98-106 CO2 (BEAKER) (test bcjl=086) 24 meq/L 20-31 BLOOD UREA NITROGEN (BEAKER) (test cwqm=954) 7 mg/dL 10-26 CREATININE (BEAKER) (test fkdc=472) 0.73 mg/dL 0.50-1.20 GLUCOSE RANDOM (BEAKER) (test nanl=419) 90 mg/dL 70-110 CALCIUM (BEAKER) (test tbqd=753) 9.3 mg/dL 8.5-10.5 AST (SGOT) (BEAKER) (test crrp=842) 20 U/L 5-40 ALT (SGPT) (BEAKER) (test sgqj=097) 13 U/L 6-50 EGFR (BEAKER) (test cwjn=2806) mL/min/1.73 sq m INSUFFICIENT CLINICAL DATA TO CALCULATE ESTIMATED GFR. POCT-GLUCOSE [id number] 06:39:00* Test Item Value Reference Range Comments POC-GLUCOSE METER (BEAKER) (test weis=0670) 112 mg/dL 70-110 TESTED AT [facility] [address] [facility] [address] BLOOD GAS, [id number] 05:05:00* Test Item Value Reference Range Comments PH ARTERIAL (BEAKER) (test rdlv=212) 7.36 7.35-7.45 PCO2 ARTERIAL (BEAKER) (test wsjp=657) 35 mmHg 35-45 PO2 ARTERIAL (BEAKER) (test knjm=456) 491 mmHg 80-90 O2 SATURATION ARTERIAL (BEAKER) (test yhgb=965) 99.9 % 96.0-97.0 HCO3 ARTERIAL (BEAKER) (test jimv=751) 19 mmol/L 21-29 BASE EXCESS ARTERIAL (BEAKER) (test hlwk=838) -5.5 mmol/L -2.0-3.0 PATIENT TEMPERATURE (BEAKER) (test lbks=9423) 37.0 C FIO2 (BEAKER) (test lath=8286) 100.0 % CT, BRAIN, WITHOUT [id number] 04:51:00Reason for exam:->INGESTIONIs the patient ?->UnknownWhat is the patient's sedation requirement?->No SedationFINAL REPORT EXAM: CT head without contrast. CLINICAL [...] an acute intracranial process. Signed: Melissa Porter Verified Date/Time: 03/22/2018 04:51:18 Reading Location: [address] Reading Room , SPINE, CERVICAL, WO [id number] 04:43:00Reason for exam:->INGESTIONIs the patient ?->UnknownWhat is the patient's sedation requirement?->No SedationFINAL REPORT EXAM: CERVICAL SPINE CT WITHOUT CONTRAST CLINICAL INDICATION: INGESTIONpossibly found down COMPARISON: None TECHNIQUE: Axially oriented 2.5 mm thick images were obtained through the entire cervical spine, without contrast. Sagittal and coronal reformations are also provided in osseous and soft tissue algorithms. DOSE REDUCTION: Dose modulation, iterative reconstruction, and/or weight-based adjustment of the mA/kV was utilized to reduce the radiation dose to as low as reasonably achievable. FINDINGS:There is no fracture or traumatic malalignment. The occipital condyles are intact and normally seated. The atlantodental interval is preserved. The canal and foramina are patent. Prevertebral soft tissue structures are unremarkable. Visible portions of the aerodigestive tract are clear. The thyroid gland is unremarkable. There is no apical pneumothorax. IMPRESSION: No acute abnormality in the cervical spine. Signed: JR Ritter Robert MDReport Verified Date/Time: 03/22/2018 04:43:18 Reading Location: [address] Reading Room D DRUG SCREEN, [id number] 04:33:00 * Test Item Value Reference Range Comments BARBITURATE URINE (BEAKER) (test aukn=549) Negative Negative BENZODIAZEPINE SCREEN URINE (BEAKER) (test ujjr=347) Positive Negative COCAINE (METAB.) SCREEN (BEAKER) (test flcb=7053) Negative Negative METHADONE SCREEN (BEAKER) (test fxoo=7025) Negative Negative OPIATE SCREEN URINE (BEAKER) (test ankt=798) Negative Negative CANNABINOID SCREEN URINE (BEAKER) (test ekwr=552) Negative Negative AMPH/METHAMPH SCREEN (BEAKER) (test nkdz=7137) Negative Negative PHENCYCLIDINE SCREEN URINE (BEAKER) (test ofpw=993) Negative Negative DRUG CUTOFF CONC.Cocaine 300 ng/mL Cannabinoid 50 ng/mLBenzodiazepine 200 ng/mLBarbiturate 200 ng/mLPh encyclidine 25 ng/mLOpiate 300 ng/mLMethadone 300 ng/mLAmphetamine/ 1000 ng/mL MethamphetamineThis assay provides an unconfirmed qualitative test result for the clinical management of patients in emergency situations. Chain of custody not maintained. Some vgwu-zrb-utvatwh me dications, as well as adulterants, may cause inaccurate results. Clinical correl ation should be applied. A more comprehensive drug screen or confirmation of a d etected drug may be performed upon request.TROPONIN [id number] 04:33:00* Test Item Value Reference Range Comments TROPONIN I (BEAKER) (test orzt=810) < ng/mL 0.00-0.15 Troponin I (TnI) levels must be interpreted in the context of the presenting sym ptoms and the clinical findings. Elevated TnI levels indicate myocardial damage, but are not specific for ischemic heart disease. Elevated TnI levels are seen in patients with other cardiac conditions (including myocarditis and congestive h eart failure), and slight TnI elevations occur in patients with other conditions , including sepsis, renal failure, acidosis, acute neurological disease, and per sistent tachyarrhythmia.[id number] 04:27:00* Test Item Value Reference Range Comments MAGNESIUM (BEAKER) (test fonl=506) 2.0 mg/dL 1.5-3.0 Specimen slightly hemolyzed [id number] 04:27:00* Test Item Value Reference Range Comments PHOSPHORUS (BEAKER) (test iwbp=410) 4.0 mg/dL 2.5-4.5 Specimen slightly hemolyzed HEPATIC FUNCTION [id number] 04:27:00* Test Item Value Reference Range Comments TOTAL PROTEIN (BEAKER) (test nmzz=983) 7.7 gm/dL 6.0-8.5 Specimen slightly hemolyzed ALBUMIN (BEAKER) (test ogrl=3104) 4.1 g/dL 3.5-5.0 Specimen slightly hemolyzed BILIRUBIN TOTAL (BEAKER) (test szop=508) 0.5 mg/dL 0.1-1.3 Specimen slightly hemolyzed BILIRUBIN DIRECT (BEAKER) (test yzpv=150) 0.2 mg/dL 0.0-0.5 Specimen slightly hemolyzed ALKALINE PHOSPHATASE (BEAKER) (test kznz=572) 58 U/L 30-115 AST (SGOT) (BEAKER) (test kuvc=707) 28 U/L 5-40 Specimen slightly hemolyzed ALT (SGPT) (BEAKER) (test xilr=543) 18 U/L 6-50 Specimen slightly hemolyzed BASIC METABOLIC [id number] 04:27:00* Test Item Value Reference Range Comments SODIUM (BEAKER) (test uwgf=242) 140 meq/L 135-148 POTASSIUM (BEAKER) (test yreh=007) 3.5 meq/L 3.5-5.5 Specimen slightly hemolyzed CHLORIDE (BEAKER) (test dxuw=474) 105 meq/L 98-106 CO2 (BEAKER) (test fpoh=067) 24 meq/L 20-31 BLOOD UREA NITROGEN (BEAKER) (test djkk=789) 8 mg/dL 10-26 CREATININE (BEAKER) (test wrvd=894) 0.78 mg/dL 0.50-1.20 Specimen slightly hemolyzed GLUCOSE RANDOM (BEAKER) (test ggsc=507) 137 mg/dL 70-110 CALCIUM (BEAKER) (test wyhn=423) 9.1 mg/dL 8.5-10.5 EGFR (BEAKER) (test ivlf=8818) mL/min/1.73 sq m INSUFFICIENT CLINICAL DATA TO CALCULATE ESTIMATED GFR. SALICYLATE [id number] 04:24:00* Test Item Value Reference Range Comments SALICYLATE LEVEL (BEAKER) (test zzhh=133) < mg/dL 20.0-30.0 ACETAMINOPHEN [id number] 04:24:00* Test Item Value Reference Range Comments ACETAMINOPHEN LEVEL (BEAKER) (test ools=906) < ug/mL 10.0-30.0 [id number] 04:21:00* Test Item Value Reference Range Comments ETHANOL (BEAKER) (test eryw=250) < mg/dL <=10 HCG, SERUM, [id number] 04:18:00* Test Item Value Reference Range Comments TEST SERUM (BEAKER) (test yytv=697) Negative CBC W/PLT COUNT & AUTO [id number] 04:09:00* Test Item Value Reference Range Comments WHITE BLOOD CELL COUNT (BEAKER) (test wigw=287) 11.0 K/ L 4.0-10.0 RED BLOOD CELL COUNT (BEAKER) (test aaan=960) 4.70 M/ L 4.00-5.00 HEMOGLOBIN (BEAKER) (test adii=375) 12.1 GM/DL 12.0-15.0 HEMATOCRIT (BEAKER) (test fhmq=408) 36.8 % 36.0-45.0 MEAN CORPUSCULAR VOLUME (BEAKER) (test udrq=770) 78.2 fL 82.0-99.0 MEAN CORPUSCULAR HEMOGLOBIN (BEAKER) (test iels=536) 25.8 pg 27.0-33.0 MEAN CORPUSCULAR HEMOGLOBIN CONC (BEAKER) (test iebu=799) 33.0 GM/DL 32.0-36.0 RED CELL DISTRIBUTION WIDTH (BEAKER) (test ceve=081) 14.4 % 12.0-15.0 PLATELET COUNT (BEAKER) (test mthz=990) 353 K/CU MM 150-430 MEAN PLATELET VOLUME (BEAKER) (test ldnm=455) 7.4 fL 6.5-10.5 NUCLEATED RED BLOOD CELLS (BEAKER) (test pnif=599) 0 /100 WBC 0-0 NEUTROPHILS RELATIVE PERCENT (BEAKER) (test iebh=179) 70 % LYMPHOCYTES RELATIVE PERCENT (BEAKER) (test bsga=491) 22 % MONOCYTES RELATIVE PERCENT (BEAKER) (test wsrc=482) 8 % EOSINOPHILS RELATIVE PERCENT (BEAKER) (test migk=452) 0 % BASOPHILS RELATIVE PERCENT (BEAKER) (test wpbe=304) 0 % NEUTROPHILS ABSOLUTE COUNT (BEAKER) (test pwwh=201) 7.70 K/ L 1.80-8.00 LYMPHOCYTES ABSOLUTE COUNT (BEAKER) (test raln=164) 2.40 K/ L 1.48-4.50 MONOCYTES ABSOLUTE COUNT (BEAKER) (test woyu=344) 0.90 K/ L 0.00-1.30 EOSINOPHILS ABSOLUTE COUNT (BEAKER) (test hhaw=739) 0.00 K/ L 0.00-0.50 BASOPHILS ABSOLUTE COUNT (BEAKER) (test egww=986) 0.00 K/ L 0.00-0.20 RAD, CHEST, 1 VIEW, NON [id number] 04:06:00Reason for exam:->ett placementIs the patient ?->UnknownShould this be performed at the bedside?->YesFINAL REPORT RAD, CHEST, 1 VIEW, NON DEPT INDICATION: ett placement COMPARISON: None FINDINGS: Portable frontal view of the chest. IMPR ESSION: Support Lines: Endotracheal tube distal tip terminates 6 cm above the c isaura. An enteric tube placed. The side-port projects at the level of clavicles and should be repositioned. Lungs and pleura: Lungs are clear. There is no effus ion No pneumothorax.Heart and mediastinum: Unremarkable contours.Additional find ings: None. Signed: JR Ritter Robert MDReport Verified Date/Time: 03/22 04:06:37 Reading Location: [address] Reading Room Electro nically signed by: RAMOS RITTER on 03/22/2018 04:06 AM
== END 2018-12-24 00:40 | disposition left against medical advice (07) ==
LOC: FSED 23:59
DX: F41.9 Anxiety disorder, unspecified (principal)
CPT/HCPCS: 93005